=== PATIENT | male | born 2000 | race Caucasian/White ===

== ENCOUNTER 2019-07-12 23:49 | Emergency (ER) | payer OTHER ==
[~2019-07-12] VITALS: Ht 190.5 cm; Wt 134.1 kg
[~2019-07-12 23:49] MED LIST: CIPR-249 PO; HYDR-3715 PO; NO HOME MEDS; VITADRO5 PO
[2019-07-13 01:15] VITALS: BP 141/60
[2019-07-13] MEDS ORDERED: OXYMETAZOLINE NASAL SPRAY (AFRIN) ONE (01:15)
== END 2019-07-13 01:22 | disposition home or self-care (01) ==
LOC: M ED 23:49
DX: R55 Syncope and collapse (principal); R04.0 Epistaxis; Z88.1 Allergy status to other antibiotic agents